=== PATIENT | male | born 1940 | race Caucasian/White ===

== ENCOUNTER 2016-11-28 10:16 | Inpatient (IN) | payer MEDICARE, OTHER ==
[2016-11-28] MEDS ORDERED: ALBUTEROL SULFATE 0.083% NEB 2.5 MG/3 ML AMPUL NEB ONE (10:32)
--- NOTE | 2016-11-28 10:34 | ER Document Report ---
ED Medical Screen (RME) - General Chief Complaint: Breathing Difficulty Stated Complaint: COUGH, SHORTNESS OF BREATH Time seen by provider: 10:34 Mode of Arrival: Wheelchair Information source: Patient Notes: 76-year-old male with cough and congestion through the holidays. He saw his primary care provider who put him on Tessalon Perles he is getting sicker. They 're wondering if he has pneumonia. 91% at triage. TRAVEL OUTSIDE OF THE [place] IN LAST 30 DAYS: No - Related Data Allergies/Adverse Reactions: lisinopril Adverse Reaction (Verified 11/28/16 10:34) cough Past Medical History - Social History Chew tobacco use (# tins/day): No
--- NOTE | 2016-11-28 10:43 | ER Document Report ---
ED Respiratory Problem - General Mode of Arrival: Wheelchair Information source: Patient TRAVEL OUTSIDE OF THE [place] IN LAST 30 DAYS: No - HPI Patient complains to provider of: Cough, Short of breath Onset: Other - see narrative Duration: Worse/persistent Quality of pain: No pain Short of Breath: Moderate Cough: Productive Sputum amount: Moderate Sputum color: Brown Associated symptoms: None Recently seen / treated by doctor: Yes <TERENCE ODELL - Last Filed: 11/28/16 11:37> <AMARA RAE - Last Filed: 11/28/16 12:34> - General Chief Complaint: Breathing Difficulty Stated Complaint: COUGH, SHORTNESS OF BREATH Notes: Patient is a 76-year-old male that presents to the emergency department today with complaints of a "cold" for a few weeks. Patient states he has had a productive cough over the last 1.5 weeks and his sputum is "the color of mud". Patient is in mild respiratory distress. Patient states he was recently changed from lisinopril to losartan because of a dry cough at the beginning of this "cold", a few weeks ago. (TERENCE ODELL) - Related Data Allergies/Adverse Reactions: lisinopril Adverse Reaction (Verified 11/28/16 10:34) cough Past Medical History - General Information source: Patient - Social History Smoking Status: Never Smoker Cigarette use (# per day): No Chew tobacco use (# tins/day): No Frequency of alcohol use: None Drug Abuse: None Lives with: Family Family History: Reviewed & Not Pertinent Patient has suicidal ideation: No Patient has homicidal ideation: No - Medical History Medical History: Negative Surgical Hx: Negative <TERENCE ODELL - Last Filed: 11/28/16 11:37> Review of Systems - Review of Systems Constitutional: No symptoms reported EENT: No symptoms reported Cardiovascular: No symptoms reported Respiratory: See HPI, Cough - productive, Short of breath Gastrointestinal: No symptoms reported Genitourinary: No symptoms reported Male Genitourinary: No symptoms reported Musculoskeletal: No symptoms reported Skin: No symptoms reported Hematologic/Lymphatic: No symptoms reported Neurological/Psychological: No symptoms reported -: Yes All other systems reviewed and negative <TERENCE ODELL - Last Filed: 11/28/16 11:37> Physical Exam - Vital signs Interpretation: Tachycardic, Hypoxic, Tachypneic - General General appearance: Alert In distress: Mild - respiratory - HEENT Head: Normocephalic, Atraumatic Eyes: Normal Conjunctiva: Normal Extraocular movements intact: Yes - Respiratory Respiratory status: Respiratory distress - mild, Tachypnea Breath sounds: Productive cough, Rhonchi, Wheezing - Cardiovascular Rhythm: Tachycardia Heart sounds: Normal auscultation Murmur: No - Abdominal Inspection: Normal Distension: No distension Tenderness: Nontender - Back Back: Normal, Nontender - Extremities General upper extremity: Normal inspection, Nontender. No: Edema General lower extremity: Normal inspection, Nontender. No: Edema - Neurological Neuro grossly intact: Yes Cognition: Normal Orientation: AAOx4 Speech: Normal - Psychological Associated symptoms: Normal affect, Normal mood - Skin Skin Temperature: Warm - quite warm to touch Skin Moisture: Dry Skin Color: Normal <TERENCE ODELL - Last Filed: 11/28/16 11:37> Course - Laboratory Result Diagrams: 11/28/16 11:05 11/28/16 11:05 <TERENCE ODELL - Last Filed: 11/28/16 11:37> - Laboratory Result Diagrams: 11/28/16 11:05 11/28/16 11:05 - Diagnostic Test Radiology reviewed: Image reviewed, Reports reviewed - Right-sided pneumonia - EKG Interpretation by Ne EKG shows normal: Sinus rhythm, [place], QRS Complexes, ST-T Waves. abnormal: Intervals - Borderline prolonged QT interval Rate: Tachycardia - 105 Rhythm: PVC's When compared to previous EKG there are: Previous EKG unavailable - Consults Dr. Rasmussen Time consulted: 12:25 Consulted provider: will come to ER <AMARA RAE - Last Filed: 11/28/16 12:34> - Re-evaluation Re-evalutation: 11/28/16 12:32 Patient's blood pressure 1 235 systolic after 1-1/2 L of normal saline. The oxygen saturation went to 97% on BiPAP at 60% FiO2. A total of 2 L normal saline would be bolused, then normal saline drip as the patient has very high BUN, and elevated blood sugar. (AMARA RAE) - Laboratory Laboratory results interpreted by il: 11/28/16 11/28/16 11/28/16 11:05 11:05 11:05 WBC 23.4 H Seg Neuts % (Manual) 86 H Lymphocytes % (Manual) 1 L Metamyelocytes % 2 H Abs Neuts (Manual) 21.8 H Abs Lymphs (Manual) 0.2 L Sodium 136.1 L Chloride 97 L BUN 67 H Creatinine 1.72 H Est GFR ( Amer) 47 L Est GFR (Non-Af Amer) 39 L Glucose 357 H Lactic Acid 3.1 H Calcium 7.8 L Total Bilirubin 2.1 H AST 683 H ALT 473 H Creatine Kinase 211 H NT-Pro-B Natriuret Pep Total Protein 5.7 L Albumin 2.7 L 11/28/16 11:05 WBC Seg Neuts % (Manual) Lymphocytes % (Manual) Metamyelocytes % Abs Neuts (Manual) Abs Lymphs (Manual) Sodium Chloride BUN Creatinine Est GFR ( Amer) Est GFR (Non-Af Amer) Glucose Lactic Acid Calcium Total Bilirubin AST ALT Creatine Kinase NT-Pro-B Natriuret Pep 959 H Total Protein Albumin (AMARA RAE) Critical Care Note - Critical Care Note Total time excluding time spent on procedures (mins): 35 <AMARA RAE - Last Filed: 11/28/16 12:34> Discharge <TERENCE ODELL - Last Filed: 11/28/16 11:37> - Discharge Admitting Provider: Hospitalist Unit Admitted: IMCU <AMARA RAE - Last Filed: 11/28/16 12:34> - Discharge Clinical Impression: Hypoxemia, Hyperglycemia Pneumonia Qualifiers: Pneumonia type: due to unspecified organism Laterality: right Lung location: unspecified part of lung Qualified Code(s): J18.9 - Pneumonia, unspecified organism Sepsis Qualifiers: Sepsis type: sepsis due to unspecified organism Qualified Code(s): A41.9 - Sepsis, unspecified organism Hypotension Qualifiers: Hypotension type: unspecified hypotension type Qualified Code(s): I95.9 - Hypotension, unspecified Leukocytosis Qualifiers: Leukocytosis type: bandemia Qualified Code(s): D72.825 - Bandemia Condition: Fair Disposition: ADMITTED INPATIENT Scribe Attestation: 11/28/16 12:34 I personally performed the services described in the documentation, reviewed and edited the documentation which was dictated to the scribe in my presence, and it accurately records my words and actions. (AMARA RAE) Scribe Documentation - Scribe Written by Scribe:: Juan Diego Norton, 11/28/2016 1136 acting as scribe for :: Kemar <TERENCE ODELL - Last Filed: 11/28/16 11:37>
[2016-11-28] MEDS ORDERED: IPRATROPIUM/ALBUTEROL 0.5-2.5 MG/3 ML AMPUL NEB ONE (10:45)
[2016-11-28] MEDS ORDERED: NORMAL SALINE 1000 ML 1,000 ML IV ONE ×2 (10:45→11:33)
[2016-11-28 11:33] LABS: HEMATOCRIT 41.3 % (37.9-51.0); HEMOGLOBIN 13.8 g/dL (13.5-17.0); HGB HCT DIFFERENCE 0.1; MEAN CORPUSCULAR HEMOGLOBIN 30.1 pg (27.0-33.4); MEAN CORPUSCULAR HGB CONC 33.5 g/dL (32.0-36.0); MEAN CORPUSCULAR VOLUME 90 fl (80-97); RED CELL DISTRIBUTION WIDTH 13.6 % (11.5-14.0); WHITE BLOOD COUNT 23.4 10^3/uL (4.0-10.5)
[2016-11-28] MEDS ORDERED: CEFTRIAXONE 1 GM/D5W RTU 50 ML IV ONE (11:33)
[2016-11-28] MEDS ORDERED: ACETAMINOPHEN 325 MG TABLET PO ONE (11:35)
[2016-11-28 11:54] LABS: ALANINE AMINOTRANSFERASE 473 U/L (21-72); ALBUMIN 2.7 g/dL (3.5-5.0); ALKALINE PHOSPHATASE 117 U/L (38-126); ANION GAP 17 (5-19); ASPARTATE AMINO TRANSFERASE 683 U/L (17-59); BILIRUBIN,DIRECT 0.2 mg/dL (0.0-0.3); BILIRUBIN,TOTAL 2.1 mg/dL (0.2-1.3); BLOOD UREA NITROGEN 67 mg/dL (7-20); CALCIUM 7.8 mg/dL (8.4-10.2); CARBON DIOXIDE 22 mmol/L (22-30); CHLORIDE 97 mmol/L (98-107); CREATINE KINASE 211 U/L (55-170); CREATININE RESULT 1.72 mg/dL (0.52-1.25); GLUCOSE 357 mg/dL (75-110); SODIUM 136.1 mmol/L (137-145); TOTAL PROTEIN 5.7 g/dL (6.3-8.2)
[2016-11-28 11:58] LABS: BAND NEUTROPHILS % (MANUAL) 5 % (3-5); BASOPHILS % (MANUAL) 0 % (0-2); EOSINOPHILS % (MANUAL) 0 % (0-6); LYMPHOCYTES % (MANUAL) 1 % (13-45); TOTAL CELLS COUNTED 100
[2016-11-28 12:02] LABS: BURR CELLS SLIGHT; POIKILOCYTOSIS SLIGHT; POLYCHROMASIA SLIGHT; TEAR DROP CELLS SLIGHT; TOXIC GRANULATION 1+
[2016-11-28 12:05] LABS: CREATINE KINASE MB 2.97 ng/mL (<4.55)
[2016-11-28 12:08] LABS: TROPONIN I 0.041 ng/mL
[2016-11-28] MEDS ORDERED: INSULIN REG, HUMAN 100 UNIT/ML 3 ML VIAL (PYX) IV ONE (12:33)
[2016-11-28] MEDS ORDERED: GLUCAGON,HUMAN RECOMB 1 MG INJ IM PRN (14:26)
[2016-11-28] MEDS ORDERED: DEXTROSE 50%-WATER 25 GM/50 ML DISP.SYRIN IV PRN ×2 (14:26)
[2016-11-28] MEDS ORDERED: DEXTROSE 40% GEL 15 GM TUBE PO PRN ×2 (14:26)
[2016-11-28] MEDS ORDERED: ACETAMINOPHEN 325 MG TABLET PO PRN (14:32)
[2016-11-28] MEDS ORDERED: LEVOFLOXACIN 750 MG/D5W RTU 750 MG/150 ML RTUPB IV ONE (15:30)
[2016-11-28] MEDS ORDERED: ENOXAPARIN SODIUM INJ 40 MG/0.4 ML DISP.SYRIN SUBCUT ONE (16:00)
[2016-11-28] MEDS: NORMAL SALINE 1000 ML 1,000 ML IV PRN (16:08)
[2016-11-28 16:44] LABS: ARTERIAL BLOOD BASE EXCESS -3.2 mmol/L; ARTERIAL BLOOD O2 SATURATION 90.3 % (94-98)
--- NOTE | 2016-11-28 16:49 | PDOC H&P ---
History of Present Illness Admission Date/PCP: 11/28/16 14:27 MONICO MURRY MD Patient complains of: Shortness of breath History of Present Illness: FAVIAN PALACIOS is a 76 year old male with hypertension, hypercholesterolemia presents to the hospital with shortness of breath 2 weeks duration. Patient apparently started to develop some cough with yellowish phlegm and some sinus drainage. No sore throat but with mild chest congestion. A lot of family members has been sick with respiratory tract infection. Patient was seen by his physician and he was given Tessalon Perles outboard enormity of symptoms. For about a week patient having intermittent chills and sweating. Patient started to decrease oral intake with associated generalized weakness and malaise and fatigue. Shortness of breath got worse and therefore the patient went to the emergency room. Chest x-ray revealed infiltrate in the right. O2 saturation on 4 L goes down in the 88 and the patient was placed on BiPAP. Blood pressure reportedly no but normalized with 2 L of IV fluid. The patient was then referred for admission. Past Medical History Cardiac Medical History: Reports: Hyperlipidema, Hypertension Malignancy Medical History: Reports: Skin Cancer Musculoskeltal Medical History: Reports: Arthritis Past Surgical History Past Surgical History: Reports: Cardiac Catheterization, Orthopedic Surgery Social History Lives with: Family Smoking Status: Never Smoker Frequency of Alcohol Use: Rare Hx Recreational Drug Use: No Drugs: None Hx Prescription Drug Abuse: No - Advance Directive Resuscitation Status: Full Code Family History Family History: Malignancy, Other - ALS Parental Family History Reviewed: Yes Children Family History Reviewed: Yes Sibling(s) Family History Reviewed.: Yes Medication/Allergy Home Medications: Metoprolol Tartrate [Lopressor 50 mg Tablet] 50 mg PO DAILY 11/28/16 Metoprolol Tartrate [Lopressor 50 mg Tablet] 75 mg PO QHS 11/28/16 Simvastatin [Zocor 40 mg Tablet] 40 mg PO QHS 11/28/16 Valsartan [Diovan 160 mg Tablet] 160 mg PO QHS 11/28/16 Allergies/Adverse Reactions: lisinopril Adverse Reaction (Verified 11/28/16 10:34) cough Review of Systems Constitutional: PRESENT: chills, fever(s), weakness - Generalized, other - Positive sweating. ABSENT: headache(s), weight gain, weight loss Eyes: ABSENT: visual disturbances Ears: ABSENT: hearing changes Nose, Mouth, and Throat: ABSENT: mouth pain, sore throat Cardiovascular: PRESENT: chest pain - Pleuritic, dyspnea on exertion. ABSENT: edema, orthropnea, palpitations Respiratory: PRESENT: cough, dyspnea, sputum - Yellowish. ABSENT: hemoptysis Gastrointestinal: PRESENT: diarrhea - Watery for the past 2 days. ABSENT: abdominal pain, constipation, hematemesis, hematochezia, melena, nausea, vomiting Genitourinary: ABSENT: difficulty urinating, dysuria, hematuria Musculoskeletal: PRESENT: muscle weakness - Generalized. ABSENT: joint swelling Integumentary: ABSENT: pruritus, rash, wounds Neurological: ABSENT: abnormal gait, abnormal speech, confusion, dizziness, focal weakness, syncope Psychiatric: ABSENT: anxiety, depression, homidical ideation, suicidal ideation Endocrine: ABSENT: cold intolerance, heat intolerance, polydipsia, polyuria Hematologic/Lymphatic: ABSENT: easy bleeding, easy bruising Physical Exam Vital Signs: Temp Pulse Resp BP Pulse Ox 98.6 F 86 17 96/55 L 97 11/28/16 14:10 11/28/16 15:07 11/28/16 14:15 11/28/16 14:15 11/28/16 14:15 General appearance: PRESENT: no acute distress, cooperative, other - BiPAP Head exam: PRESENT: atraumatic, normocephalic Eye exam: PRESENT: conjunctiva pink, EOMI, PERRLA Ear exam: PRESENT: normal external ear exam. ABSENT: drainage Mouth exam: PRESENT: dry mucosa, neck supple Throat exam: ABSENT: post pharyngeal erythema, tonsillar erythema, tonsillar exudate Neck exam: ABSENT: carotid bruit, JVD, lymphadenopathy, thyromegaly Respiratory exam: PRESENT: clear to auscultation teresa, rales - Posteriorly on the right, other - Harsh breath sounds in the right. ABSENT: rhonchi, wheezes Cardiovascular exam: PRESENT: RRR, +S1, +S2, tachycardia. ABSENT: diastolic murmur, rubs Pulses: PRESENT: normal dorsalis pedis pul Vascular exam: PRESENT: normal capillary refill GI/Abdominal exam: PRESENT: normal bowel sounds, soft. ABSENT: distended, guarding, mass, organolmegaly, rebound, tenderness Rectal exam: PRESENT: deferred Extremities exam: PRESENT: full ROM. ABSENT: calf tenderness, clubbing, pedal edema Neurological exam: PRESENT: alert, awake, oriented to person, oriented to place , oriented to time, oriented to situation Psychiatric exam: PRESENT: appropriate affect, normal mood. ABSENT: homicidal ideation, suicidal ideation Skin exam: PRESENT: dry, intact, warm. ABSENT: cyanosis, rash Results Laboratory Results: 11/28/16 15:50 Lactic Acid 1.8 Impressions: Chest X-Ray 11/28/16 11:14 IMPRESSION: Pneumonia on the right. Assessment & Plan - Diagnosis (1) Respiratory failure Qualifiers: Chronicity: acute Respiratory failure complication: hypoxia Qualified Code(s): J96.01 - Acute respiratory failure with hypoxia Is this a current diagnosis for this admission?: Yes (2) Hypotension Qualifiers: Hypotension type: unspecified hypotension type Qualified Code(s): I95.9 - Hypotension, unspecified Is this a current diagnosis for this admission?: Yes (3) Pneumonia Qualifiers: Pneumonia type: due to unspecified organism Laterality: right Lung location: unspecified part of lung Qualified Code(s): J18.9 - Pneumonia, unspecified organism Is this a current diagnosis for this admission?: Yes (4) Sepsis Qualifiers: Sepsis type: sepsis due to unspecified organism Qualified Code(s): A41.9 - Sepsis, unspecified organism Is this a current diagnosis for this admission?: Yes (5) Acute renal failure Qualifiers: Acute renal failure type: unspecified Qualified Code(s): N17.9 - Acute kidney failure, unspecified Is this a current diagnosis for this admission?: Yes (6) Abnormal liver function test Is this a current diagnosis for this admission?: Yes (7) Diabetes mellitus with hyperglycemia Qualifiers: Diabetes mellitus type: type 2 Diabetes mellitus rat exterminator insulin use : without jail use Qualified Code(s): E11.65 - Type 2 diabetes mellitus with hyperglycemia Is this a current diagnosis for this admission?: Yes (8) Hypertension Qualifiers: Hypertension type: essential hypertension Qualified Code(s): I10 - Essential (primary) hypertension Is this a current diagnosis for this admission?: Yes (9) Hyperlipidemia Qualifiers: Hyperlipidemia type: unspecified Qualified Code(s): E78.5 - Hyperlipidemia, unspecified Is this a current diagnosis for this admission?: Yes - Time Time Spent: 50 to 70 Minutes - Inpatient Certification Based on my medical assessment, after consideration of the patient's comorbidities, presenting symptoms, or acuity I expect that the services needed warrant INPATIENT care.: Yes I certify that my determination is in accordance with my understanding of Medicare's requirements for reasonable and necessary INPATIENT services [42 CFR 412.3e].: Yes Medical Necessity: Significant Comorbidiites Make Outpatient Treatment Too Risky , Need Close Monitoring Due to Risk of Patient Decompensation, Need For IV Fluids, Risk of Complication if Not Cared For in Hospital, Risk of Diagnosis Which Will Require Inpatient Eval/Care/Monitoring Post Hospital Care: D/C Ab Initio Etl Developer Documentation - Plan Summary Plan Summary: The patient will be admitted to [facility]. We will culture the sputum and blood. Continue BiPAP and begin antibiotics with Levaquin and cefepime. As needed nebulizers, antipyretics and analgesics will be given. DVT prophylaxis with Lovenox. The patient will be placed on sliding scale insulin. We will obtain hemoglobin A1c and lipid panel. We will hydrate the patient and monitor creatinine. Elevated liver function tests likely medication induced, we will obtain a right upper quadrant ultrasound.
--- NOTE | 2016-11-28 17:00 | EKG REPORT ---
SEVERITY:- ABNORMAL ECG - SINUS TACHYCARDIA MULTIPLE VENTRICULAR PREMATURE COMPLEXES BORDERLINE PROLONGED QT INTERVAL : Confirmed by: Hien Vance MD 28-Nov-2016 16:58:56
[2016-11-28] MEDS: INSULIN REG, HUMAN 100 UNIT/ML 3 ML VIAL (PYX) SUBCUT PRN ×2 (18:16→22:12)
[2016-11-28] MEDS ORDERED: CEFEPIME 2 GM/D5W RTU 50 ML IV SCH (22:00)
[2016-11-28] MEDS: GUAIFENESIN 600 MG TABLET.SA PO SCH (22:16)
[2016-11-28] MEDS: CEFEPIME HCL 2 GM in DEXTROSE 5%-WATER 50 ML IV SCH (22:18)
[2016-11-29] MEDS: NORMAL SALINE 1000 ML 1,000 ML IV PRN ×2 (02:33→15:10)
[2016-11-29] MEDS: LANSOPRAZOLE 30 MG TAB.RAP.DR PO SCH (05:30)
[2016-11-29 07:45] LABS: HEMATOCRIT 36.9 % (37.9-51.0); HEMOGLOBIN 12.3 g/dL (13.5-17.0); MEAN CORPUSCULAR HEMOGLOBIN 30.2 pg (27.0-33.4); MEAN CORPUSCULAR HGB CONC 33.5 g/dL (32.0-36.0); MEAN CORPUSCULAR VOLUME 90 fl (80-97); RED BLOOD COUNT 4.09 10^6/uL (4.35-5.55); WHITE BLOOD COUNT 25.3 10^3/uL (4.0-10.5)
[2016-11-29 07:48] LABS: ALANINE AMINOTRANSFERASE 366 U/L (21-72); ALBUMIN 2.1 g/dL (3.5-5.0); ALKALINE PHOSPHATASE 103 U/L (38-126); ANION GAP 13 (5-19); ASPARTATE AMINO TRANSFERASE 414 U/L (17-59); BILIRUBIN,DIRECT 0.1 mg/dL (0.0-0.3); BILIRUBIN,TOTAL 1.9 mg/dL (0.2-1.3); BLOOD UREA NITROGEN 58 mg/dL (7-20); CALCIUM 7.1 mg/dL (8.4-10.2); CARBON DIOXIDE 20 mmol/L (22-30); CHLORIDE 106 mmol/L (98-107); CREATININE RESULT 1.36 mg/dL (0.52-1.25); GLUCOSE 180 mg/dL (75-110); POTASSIUM 3.7 mmol/L (3.6-5.0); SODIUM 138.9 mmol/L (137-145); TOTAL PROTEIN 4.9 g/dL (6.3-8.2)
[2016-11-29] MEDS: INSULIN REG, HUMAN 100 UNIT/ML 3 ML VIAL (PYX) SUBCUT PRN ×3 (08:22→18:11)
[2016-11-29] MEDS: ENOXAPARIN SODIUM INJ 40 MG/0.4 ML DISP.SYRIN SUBCUT SCH (08:22)
[2016-11-29 08:31] LABS: BAND NEUTROPHILS % (MANUAL) 13 % (3-5); TOTAL CELLS COUNTED 100
[2016-11-29 08:32] LABS: BASOPHILS % (MANUAL) 0 % (0-2); EOSINOPHILS % (MANUAL) 0 % (0-6); LYMPHOCYTES % (MANUAL) 5 % (13-45); RBC MORPHOLOGY COMMENT NORMO-CYTIC/CHROMIC; TOXIC GRANULATION 1+; TOXIC VACUOLATION PRESENT
--- NOTE | 2016-11-29 09:52 | PDOC PROGRESS REPORT ---
Subjective Progress Note for:: 11/29/16 Subjective:: Feels slightly better today than yesterday. Able to tolerate off the BiPAP. No diarrhea. No nausea or vomiting. Creatinine improving. Liver function improving. WBC however slightly increased today. No abdominal pain nausea or vomiting. Blood pressure is now normal. Patient started to develop some tachycardia. Physical Exam Vital Signs: Temp Pulse Resp BP Pulse Ox 99.2 F 107 H 35 H 138/61 H 93 11/29/16 07:46 11/29/16 07:46 11/29/16 08:44 11/29/16 07:46 11/29/16 08:44 Pulse Oximeter Continuous Start: 11/28/16 14: 29 Freq: RTQ4 Status: Active Document 11/29/16 08:00 [facility] (Rec: 11/29/16 08:39 [facility] [email or web address]) Pulse Oximetry Assessment Oxygen Saturation (92-100) 91 Oxygen Flow Rate (L/min) 15 Oxygen Delivery Method Non-Rebreather Equipment Usage Equipment in Use Continuous SpO2 Machine # 1 Intake & Output 11/28/16 11/29/16 11/30/16 06:59 06:59 06:59 Intake Total 550 Output Total 600 Balance -50 General appearance: PRESENT: no acute distress, cooperative Head exam: PRESENT: normocephalic Eye exam: PRESENT: EOMI, PERRLA Mouth exam: PRESENT: moist, neck supple Neck exam: ABSENT: JVD Respiratory exam: PRESENT: decreased breath sounds - Right side, rhonchi - Bilateral more on the right Cardiovascular exam: PRESENT: RRR GI/Abdominal exam: PRESENT: normal bowel sounds, soft. ABSENT: distended, tenderness Extremities exam: ABSENT: pedal edema Neurological exam: PRESENT: alert, awake, oriented to situation Skin exam: PRESENT: dry, warm. ABSENT: cyanosis Results Laboratory Results: 11/29/16 04:41 11/29/16 04:41 11/28/16 11/28/16 11/29/16 15:50 16:18 04:41 WBC 25.3 H RBC 4.09 L Hgb 12.3 L Hct 36.9 L MCV 90 MCH 30.2 MCHC 33.5 RDW 14.0 Plt Count 253 Seg Neutrophils % Not Reportable Lymphocytes % Not Reportable Monocytes % Not Reportable Eosinophils % Not Reportable Basophils % Not Reportable Absolute Neutrophils Not Reportable Absolute Lymphocytes Not Reportable Absolute Monocytes Not Reportable Absolute Eosinophils Not Reportable Absolute Basophils Not Reportable Carbonic Acid 0.95 L HCO3/H2CO3 Ratio 21:1 ABG pH 7.42 ABG pCO2 31.7 L ABG pO2 56.2 L ABG HCO3 20.2 ABG O2 Saturation 90.3 L ABG Base Excess -3.2 FiO2 70% Sodium Potassium Chloride Carbon Dioxide Anion Gap BUN Creatinine Est GFR ( Amer) Est GFR (Non-Af Amer) Glucose Lactic Acid 1.8 Calcium Total Bilirubin AST ALT Alkaline Phosphatase Total Protein Albumin 11/29/16 04:41 WBC RBC Hgb Hct MCV MCH MCHC RDW Plt Count Seg Neutrophils % Lymphocytes % Monocytes % Eosinophils % Basophils % Absolute Neutrophils Absolute Lymphocytes Absolute Monocytes Absolute Eosinophils Absolute Basophils Carbonic Acid HCO3/H2CO3 Ratio ABG pH ABG pCO2 ABG pO2 ABG HCO3 ABG O2 Saturation ABG Base Excess FiO2 Sodium 138.9 Potassium 3.7 Chloride 106 Carbon Dioxide 20 L Anion Gap 13 BUN 58 H Creatinine 1.36 H Est GFR ( Amer) > 60 Est GFR (Non-Af Amer) 51 L Glucose 180 H Lactic Acid Calcium 7.1 L Total Bilirubin 1.9 H AST 414 H ALT 366 H Alkaline Phosphatase 103 Total Protein 4.9 L Albumin 2.1 L Impressions: Chest X-Ray 11/28/16 11:14 IMPRESSION: Pneumonia on the right. Abdomen Ultrasound 11/29/16 00:00 IMPRESSION: No acute findings. Gallbladder wall is slightly thickened as described. There is fatty infiltration of liver. Assessment & Plan - Diagnosis (1) Respiratory failure Qualifiers: Chronicity: acute Respiratory failure complication: hypoxia Qualified Code(s): J96.01 - Acute respiratory failure with hypoxia Is this a current diagnosis for this admission?: Yes (2) Hypotension Qualifiers: Hypotension type: unspecified hypotension type Qualified Code(s): I95.9 - Hypotension, unspecified Is this a current diagnosis for this admission?: Yes (3) Pneumonia Qualifiers: Pneumonia type: due to unspecified organism Laterality: right Lung location: unspecified part of lung Qualified Code(s): J18.9 - Pneumonia, unspecified organism Is this a current diagnosis for this admission?: Yes (4) Sepsis Qualifiers: Sepsis type: sepsis due to unspecified organism Qualified Code(s): A41.9 - Sepsis, unspecified organism Is this a current diagnosis for this admission?: Yes (5) Acute renal failure Qualifiers: Acute renal failure type: unspecified Qualified Code(s): N17.9 - Acute kidney failure, unspecified Is this a current diagnosis for this admission?: Yes (6) Abnormal liver function test Is this a current diagnosis for this admission?: Yes (7) Diabetes mellitus with hyperglycemia Qualifiers: Diabetes mellitus type: type 2 Diabetes mellitus ocean transportation intermediary insulin use : without fdc use Qualified Code(s): E11.65 - Type 2 diabetes mellitus with hyperglycemia Is this a current diagnosis for this admission?: Yes (8) Hypertension Qualifiers: Hypertension type: essential hypertension Qualified Code(s): I10 - Essential (primary) hypertension Is this a current diagnosis for this admission?: Yes (9) Hyperlipidemia Qualifiers: Hyperlipidemia type: unspecified Qualified Code(s): E78.5 - Hyperlipidemia, unspecified Is this a current diagnosis for this admission?: Yes - Time Time Spent with patient: 25-34 minutes - Plan Summary Plan Summary: Continue antibiotics and bronchodilators. Continue supplemental oxygen. Monitor WBC. Monitor liver function tests. We will resumed the patient's beta alycia. Continue to hold cholesterol medication due to elevated liver function.
[2016-11-29] MEDS ORDERED: METOPROLOL TARTRATE 50 MG TABLET PO SCH ×2 (10:00→22:00)
[2016-11-29] MEDS: CEFEPIME HCL 2 GM in DEXTROSE 5%-WATER 50 ML IV SCH ×2 (10:01→22:40)
[2016-11-29] MEDS: METOPROLOL TARTRATE 50 MG TABLET PO SCH ×2 (10:01→22:40)
[2016-11-29] MEDS: GUAIFENESIN 600 MG TABLET.SA PO SCH ×2 (10:01→22:46)
[2016-11-29] MEDS: LEVOFLOXACIN 750 MG/D5W RTU 150 ML IV SCH (10:50)
[2016-11-29 13:38] LABS: PATH REVIEW PATHOLOGIST REVIEWED
--- NOTE | 2016-11-29 16:13 | Physician Advisory Note ---
Physician Advisor ProgressNote .: Pursuant to the plan for [facility], I have reviewed the medical record for this patient. Physician Advisor Statement: Possible documentation opportunities if attending agrees: 1. "PNA of all Rt lobes of lung, due to H.flu" [or specify which other organism you suspect] 2. "sepsis due to PNA, present on admission, despite neg BCs" - Pt does meet criteria for dx of sepsis (Sepsis-2 & Sepsis-3/SOFA & qSOFA), with HR 102, RR45, BP 94/54, WBC 23.4, lactate level 3.1, hypoxemia, TBili 2.1, Cr 1.72 3. "mild hyponatremia, likely due to intravascular volume depletion" 4. "Acute Kidney Injury likely due to " [ATN, Acute cortical necrosis, medullary necrosis, ...] 5. Please document "Pt had respiratory distress & increased work of breathing evident in the ED" (*see discussion below - need both parts of Ac Resp Failure dx documented by attending, since coders have to disregard what is documented only by ED) - ED dr stated "in mild resp distress", ED triage stated "increased work of breathing", ED documented tachypnea, tachycardia. Acute Respiratory Failure = (A) Documented difficulty breathing + (B) Hypoxemia* - Hypoxemia alone is not sufficient for the dx, although certainly indicates one should consider it. A. Difficulty breathing: Pt should show signs of resp distress (even if mild), tachypnea, use of accessory muscles/retractions, tripoding, inability to speak full sentences,central cyanosis and can also be supported by decreased level of consciousness. Stating pt has SOB/coughing/wheezing (sx), when PE states NAD or gives no mention of any of above signs, is not typically sufficient to support this part of the dx. B. Hypoxemia: PO2 <60mmHg or O2 sat <88-91% on RA or P/F ratio <300. (*May substitute hypercarbia [ pCO2>50mmHg] with pH <7.35; or, if pt has chronic resp failure, then a 10-15mmHg drop in baseline PO2 at same level of O2 , or a 10mmHg increase in pCO2 from baseline.) Ref: [email or web address], same of 10/2009, 04/2010, 05/2011, 2012, 09/2013. Thanks for your help with documentation accuracy/specificity improvement! Daja Martin MD [facility] Physician Advisor, Fellow of [facility]
[2016-11-29] MEDS: LEVALBUTEROL HCL NEB 1.25 MG/3 ML AMPUL NEB PRN (18:38)
[2016-11-29] MEDS ORDERED: SIMVASTATIN 40 MG TABLET PO SCH (22:00)
[2016-11-29] MEDS ORDERED: VALSARTAN 160 MG TABLET PO SCH (22:00)
[2016-11-30] MEDS: NORMAL SALINE 1000 ML 1,000 ML IV PRN (01:05)
[2016-11-30 05:15] LABS: HEMATOCRIT 36.6 % (37.9-51.0); HEMOGLOBIN 12.4 g/dL (13.5-17.0); HGB HCT DIFFERENCE 0.6; MEAN CORPUSCULAR HEMOGLOBIN 30.1 pg (27.0-33.4); MEAN CORPUSCULAR VOLUME 89 fl (80-97); RED BLOOD COUNT 4.12 10^6/uL (4.35-5.55); RED CELL DISTRIBUTION WIDTH 14.2 % (11.5-14.0); WHITE BLOOD COUNT 28.4 10^3/uL (4.0-10.5)
[2016-11-30 05:17] LABS: ALANINE AMINOTRANSFERASE 329 U/L (21-72); ALBUMIN 1.9 g/dL (3.5-5.0); ALKALINE PHOSPHATASE 131 U/L (38-126); ANION GAP 11 (5-19); ASPARTATE AMINO TRANSFERASE 490 U/L (17-59); BILIRUBIN,TOTAL 1.8 mg/dL (0.2-1.3); BLOOD UREA NITROGEN 40 mg/dL (7-20); CALCIUM 7.2 mg/dL (8.4-10.2); CARBON DIOXIDE 21 mmol/L (22-30); CHLORIDE 109 mmol/L (98-107); CREATININE RESULT 1.05 mg/dL (0.52-1.25); GLUCOSE 101 mg/dL (75-110); POTASSIUM 3.7 mmol/L (3.6-5.0); SODIUM 140.6 mmol/L (137-145); TOTAL PROTEIN 4.9 g/dL (6.3-8.2)
[2016-11-30] MEDS: LEVALBUTEROL HCL NEB 1.25 MG/3 ML AMPUL NEB PRN ×2 (05:49→20:27)
[2016-11-30 06:13] LABS: ARTERIAL BLOOD BASE EXCESS -4.1 mmol/L; ARTERIAL BLOOD O2 SATURATION 94.4 % (94-98)
[2016-11-30] MEDS: LANSOPRAZOLE 30 MG TAB.RAP.DR PO SCH (06:25)
[2016-11-30] MEDS: LORAZEPAM INJ 2 MG/1 ML VIAL IV PRN ×2 (08:36→20:44)
[2016-11-30] MEDS: ENOXAPARIN SODIUM INJ 40 MG/0.4 ML DISP.SYRIN SUBCUT SCH (08:36)
[2016-11-30 08:43] LABS: CREATINE KINASE MB 3.6 ng/mL (<4.55); TROPONIN I 0.026 ng/mL
[2016-11-30] MEDS: METOPROLOL TARTRATE 50 MG TABLET PO SCH ×2 (09:36→21:51)
[2016-11-30] MEDS: CEFEPIME HCL 2 GM in DEXTROSE 5%-WATER 50 ML IV SCH ×2 (09:37→21:55)
[2016-11-30] MEDS: LEVOFLOXACIN 750 MG/D5W RTU 150 ML IV SCH (09:37)
[2016-11-30] MEDS: GUAIFENESIN 600 MG TABLET.SA PO SCH ×2 (09:37→21:50)
--- NOTE | 2016-11-30 09:43 | EKG REPORT ---
SEVERITY:- ABNORMAL ECG - SINUS RHYTHM PROLONGED QT INTERVAL : Confirmed by: Hien Vance MD 30-Nov-2016 09:43:10
--- NOTE | 2016-11-30 09:47 | PDOC PROGRESS REPORT ---
Subjective Progress Note for:: 11/30/16 Subjective:: Patient reportedly oxygen saturation drop and has to be transferred to the intensive care unit. No reported temperature spikes nausea or vomiting. Patient somehow not comfortable with the BiPAP as reported by the ICU staff. Oxygen saturation while in ICU is in the 90s. Patient reports no respiratory distress. No diarrhea. No nausea or vomiting. WBC continues to increase. Physical Exam Vital Signs: Temp Pulse Resp BP Pulse Ox 99.5 F 99 33 H 132/67 H 100 11/30/16 07:10 11/30/16 08:00 11/30/16 08:10 11/30/16 08:10 11/30/16 08:10 Pulse Oximeter Continuous Start: 11/28/16 14: 29 Freq: RTQ4 Status: Active Document 11/30/16 04:00 [facility] (Rec: 11/30/16 06:14 [facility] [email or web address]) Pulse Oximetry Assessment Oxygen Saturation (92-100) 93 Oxygen Delivery Method Bi-pap Fraction of Inspired Oxygen (FIO2) 100 Equipment Usage Equipment in Use Continuous SpO2 Machine # 1 Intake & Output 11/29/16 11/30/16 12/01/16 06:59 06:59 06:59 Intake Total 550 1957 Output Total 600 1000 Balance -50 957 Weight 95.8 kg General appearance: PRESENT: no acute distress, other - On BiPAP Eye exam: PRESENT: EOMI, PERRLA Mouth exam: PRESENT: moist, neck supple Neck exam: ABSENT: JVD Respiratory exam: PRESENT: decreased breath sounds - Right-sided, rhonchi - Right-sided Cardiovascular exam: PRESENT: RRR. ABSENT: gallop GI/Abdominal exam: PRESENT: soft. ABSENT: distended, tenderness Extremities exam: ABSENT: pedal edema Neurological exam: PRESENT: alert, awake, oriented to situation Skin exam: PRESENT: dry, warm. ABSENT: cyanosis Results Laboratory Results: 11/30/16 04:21 11/30/16 04:21 11/29/16 11/30/16 11/30/16 04:41 04:21 04:21 WBC 25.3 H 28.4 H RBC 4.09 L 4.12 L Hgb 12.3 L 12.4 L Hct 36.9 L 36.6 L MCV 90 89 MCH 30.2 30.1 MCHC 33.5 34.0 RDW 14.0 14.2 H Plt Count 253 261 Carbonic Acid HCO3/H2CO3 Ratio ABG pH ABG pCO2 ABG pO2 ABG HCO3 ABG O2 Saturation ABG Base Excess FiO2 Sodium 140.6 Potassium 3.7 Chloride 109 H Carbon Dioxide 21 L Anion Gap 11 BUN 40 H Creatinine 1.05 Est GFR ( Amer) > 60 Est GFR (Non-Af Amer) > 60 Glucose 101 Calcium 7.2 L Total Bilirubin 1.8 H AST 490 H ALT 329 H Alkaline Phosphatase 131 H Total Protein 4.9 L Albumin 1.9 L 11/30/16 06:07 WBC RBC Hgb Hct MCV MCH MCHC RDW Plt Count Carbonic Acid 0.94 L HCO3/H2CO3 Ratio 20:1 ABG pH 7.41 ABG pCO2 31.3 L ABG pO2 69.5 L ABG HCO3 19.4 L ABG O2 Saturation 94.4 ABG Base Excess -4.1 FiO2 100% Sodium Potassium Chloride Carbon Dioxide Anion Gap BUN Creatinine Est GFR ( Amer) Est GFR (Non-Af Amer) Glucose Calcium Total Bilirubin AST ALT Alkaline Phosphatase Total Protein Albumin 11/30/16 11/30/16 04:21 08:05 Creatine Kinase 120 CK-MB (CK-2) 3.60 Troponin I 0.026 Impressions: Abdomen Ultrasound 11/29/16 00:00 IMPRESSION: No acute findings. Gallbladder wall is slightly thickened as described. There is fatty infiltration of liver. Chest X-Ray 11/30/16 06:16 IMPRESSION: Improving pneumonia. Assessment & Plan - Diagnosis (1) Respiratory failure Qualifiers: Chronicity: acute Respiratory failure complication: hypoxia Qualified Code(s): J96.01 - Acute respiratory failure with hypoxia Is this a current diagnosis for this admission?: Yes (2) Hypotension Qualifiers: Hypotension type: unspecified hypotension type Qualified Code(s): I95.9 - Hypotension, unspecified Is this a current diagnosis for this admission?: Yes (3) Pneumonia Qualifiers: Pneumonia type: due to unspecified organism Laterality: right Lung location: unspecified part of lung Qualified Code(s): J18.9 - Pneumonia, unspecified organism Is this a current diagnosis for this admission?: Yes (4) Sepsis Qualifiers: Sepsis type: sepsis due to unspecified organism Qualified Code(s): A41.9 - Sepsis, unspecified organism Is this a current diagnosis for this admission?: Yes (5) Acute renal failure Qualifiers: Acute renal failure type: unspecified Qualified Code(s): N17.9 - Acute kidney failure, unspecified Is this a current diagnosis for this admission?: Yes (6) Abnormal liver function test Is this a current diagnosis for this admission?: Yes (7) Diabetes mellitus with hyperglycemia Qualifiers: Diabetes mellitus type: type 2 Diabetes mellitus terminal computer operator insulin use : without terminal computer operator use Qualified Code(s): E11.65 - Type 2 diabetes mellitus with hyperglycemia Is this a current diagnosis for this admission?: Yes (8) Hypertension Qualifiers: Hypertension type: essential hypertension Qualified Code(s): I10 - Essential (primary) hypertension Is this a current diagnosis for this admission?: Yes (9) Hyperlipidemia Qualifiers: Hyperlipidemia type: unspecified Qualified Code(s): E78.5 - Hyperlipidemia, unspecified Is this a current diagnosis for this admission?: Yes - Time Time Spent with patient: 25-34 minutes - Plan Summary Plan Summary: We will add Flagyl to the treatment regimen. LFTs seems to be elevated we will obtain a HIDA scan. We will likewise check CT scan of the chest for any loculated fluid. Continue supportive care. Continue ICU care. Ativan as needed for anxiety.
[2016-11-30] MEDS ORDERED: GUAIFENESIN/CODEINE PHOS 100-10 MG/ 5 ML UDC PO PRN (13:41)
[2016-11-30] MEDS: METRONIDAZOLE 500 MG/NS RTU 100 ML IV SCH ×2 (14:11→17:44)
--- NOTE | 2016-11-30 20:40 | Progress Note ---
Provider Note Provider Note: 11/30/2016: Contacted by patient's floor nurse toward the end of the evening shift concerning patient's sudden increase in oxygen requirement, along with tachypnea and respiratory distress. Rapid response was called. Went to the patient's bedside shortly thereafter. FiO2 had to be increased from 70% to 100% in a fairly rapid fashion to maintain oxygen saturation in the low 90 percentile range. Respiratory rate in the mid to upper 30s. Patient was awake and alert. Denied pain. Stated he was breathing more comfortably with the increased oxygen. Skin warm and dry. Lungs clear to auscultation. Patient awake alert pleasant and cooperative. Mildly anxious, although no phi agitation. Floor nurse present, along with ICU nurse. Female and male friends/family members present; patient approves. Due to patient's worsening respiratory status, combined with his admitting diagnosis and advanced age, decision was made to transfer the patient to the intensive care unit. Blood gas results were noted, and patient was changed from BiPAP to CPAP. Intubation was not felt necessary at that point. 30 minutes critical care time spent in evaluation and management of patient, including chart review, direct patient exam and evaluation, multiple discussions with patient, family members, nursing staff, and entering of multiple orders into the electronic health record. Patient was discussed at checkout rounds with his usual daytime hospitalist.
[2016-12-01] MEDS: METRONIDAZOLE 500 MG/NS RTU 100 ML IV SCH (00:01)
[2016-12-01 00:38] LABS: ARTERIAL BLOOD O2 SATURATION 84.6 % (94-98)
[2016-12-01] MEDS ORDERED: PROPOFOL 100 ML IV ONE (01:07)
[2016-12-01] MEDS ORDERED: PHARMACY COMMUNICATION ORDER MC NR (01:15)
[2016-12-01] MEDS ORDERED: PROPOFOL INJ 200 MG/20 ML VIAL IV ONE (01:44)
[2016-12-01] MEDS: PROPOFOL 100 ML IV PRN ×3 (02:44→12:58)
[2016-12-01] MEDS ORDERED: VANCOMYCIN HCL INJ 1000 MG VIAL ONE (03:00)
[2016-12-01] MEDS ORDERED: PIPERACILLIN/TAZOBACTAM 3.375 GM VIAL IV ONE (03:00)
[2016-12-01 03:10] LABS: ARTERIAL BLOOD BASE EXCESS -3.4 mmol/L; ARTERIAL BLOOD O2 SATURATION 88.7 % (94-98)
[2016-12-01] MEDS ORDERED: PIPERACILLIN/TAZOBACTAM 3.375 GM VIAL IV PRN (03:57)
[2016-12-01] MEDS ORDERED: VANCOMYCIN HCL INJ 1000 MG VIAL IV PRN (04:00)
[2016-12-01] MEDS ORDERED: PIPERACILLIN SODIUM/TAZOBACTAM 3.375 GM in NORMAL SALINE 100 ML IV ONE (04:00)
[2016-12-01] MEDS ORDERED: POTASSI CL 20 MEQ/NS 1L 1000 ML IV PRN (04:39)
[2016-12-01] MEDS ORDERED: NORMAL SALINE 250 ML IV ONE (04:45)
[2016-12-01] MEDS: LORAZEPAM INJ 2 MG/1 ML VIAL IV PRN (04:48)
[2016-12-01] MEDS ORDERED: VANCOMYCIN HCL 1,000 MG in DEXTROSE 5%-WATER 250 ML IV ONE (05:00)
[2016-12-01 05:06] LABS: HEMATOCRIT 36.2 % (37.9-51.0); HEMOGLOBIN 11.5 g/dL (13.5-17.0); HGB HCT DIFFERENCE -1.7; MEAN CORPUSCULAR HEMOGLOBIN 28.9 pg (27.0-33.4); MEAN CORPUSCULAR HGB CONC 31.8 g/dL (32.0-36.0); MEAN CORPUSCULAR VOLUME 91 fl (80-97); RED BLOOD COUNT 3.98 10^6/uL (4.35-5.55); RED CELL DISTRIBUTION WIDTH 14.6 % (11.5-14.0); WHITE BLOOD COUNT 29.4 10^3/uL (4.0-10.5)
[2016-12-01 05:13] LABS: ALANINE AMINOTRANSFERASE 213 U/L (21-72); ALBUMIN 1.9 g/dL (3.5-5.0); ALKALINE PHOSPHATASE 125 U/L (38-126); AMYLASE 31 U/L (30-110); ANION GAP 11 (5-19); ASPARTATE AMINO TRANSFERASE 168 U/L (17-59); BILIRUBIN,TOTAL 1.6 mg/dL (0.2-1.3); BLOOD UREA NITROGEN 41 mg/dL (7-20); CALCIUM 7.1 mg/dL (8.4-10.2); CARBON DIOXIDE 20 mmol/L (22-30); CHLORIDE 111 mmol/L (98-107); CREATININE RESULT 1.12 mg/dL (0.52-1.25); GLUCOSE 200 mg/dL (75-110); LDH 684 U/L (313-618); LIPASE 87.1 U/L (23-300); MAGNESIUM 2.6 mg/dL (1.6-2.3); PHOSPHORUS 4.2 mg/dL (2.5-4.5); POTASSIUM 3.9 mmol/L (3.6-5.0); SODIUM 142.3 mmol/L (137-145); TOTAL PROTEIN 4.9 g/dL (6.3-8.2); TRIGLYCERIDES 330 mg/dL (<150)
[2016-12-01 05:20] LABS: ARTERIAL BLOOD BASE EXCESS -4.8 mmol/L; ARTERIAL BLOOD O2 SATURATION 95.7 % (94-98)
[2016-12-01] MEDS: LANSOPRAZOLE 30 MG TAB.RAP.DR PO SCH (05:52)
[2016-12-01 05:54] LABS: BASOPHILS % (MANUAL) 0 % (0-2); EOSINOPHILS % (MANUAL) 0 % (0-6); LYMPHOCYTES % (MANUAL) 9 % (13-45); TOTAL CELLS COUNTED 100
[2016-12-01 05:55] LABS: TOXIC GRANULATION 1+
[2016-12-01 05:56] LABS: ANISOCYTOSIS SLIGHT; TARGET CELLS SLIGHT
--- NOTE | 2016-12-01 06:38 | CONSULTATION REPORT E ---
Consultation Report NAME: FAVIAN PALACIOS : 1940 AGE: 76Y DATE: 11/30/2016 602 A TO: NOEL ALVAREZ M.D. FROM: ADRIENNE MARTINEZ Requesting Physician HISTORY OF PRESENT ILLNESS: Patient is a 76-year-old male, who came about 2 days ago for increased shortness of breath, fever, chills, coughing productively with purulent yellow-green sputum, admitted and treated for pneumonia, was given cefepime 2 g IV piggyback, Levaquin 750 mg daily IV and Flagyl 500 mg IV piggyback every 6 hours. Today, pulmonology was consulted because patient went to acute respiratory failure due to multiolbar pneumonia and severely sepsis with white count of 25,000 and increased bandemia over the last few days. Patient was subsequently endotracheally intubated and mechanically ventilated, requiring high FiO2 of 100% and PEEP of 10 cm H2O and borderline oxygen saturation. Patient was noted to be febrile this morning. PAST MEDICAL HISTORY: 1. Hyperlipidemia. 2. Hypertension. 3. Skin cancer. 4. Arthritis. PAST SURGICAL HISTORY: orthopedic surgery. SOCIAL HISTORY: Patient lives with family. He never smoked. Drinks alcohol occasionally. Denies illicit drug use. Denies prescription drug abuse. CODE STATUS: Patient is a FULL CODE. FAMILY HISTORY: Patient has family history of malignancy. MEDICATIONS AT HOME: Include: 1. Metoprolol. 2. Simvastatin. 3. Valsartan. ALLERGIES: LISINOPRIL. REVIEW OF SYSTEMS: CONSTITUTIONAL: No fever, chills or weakness. Generalized and profuse sweating. EYES: No jaundice or blurry vision. EARS: No hearing changes or ear discharges. NOSE/MOUTH/THROAT: No complaints of mouth pain or ulcer in throat. CARDIOVASCULAR: Has the chest pain, pleuritic dyspnea, edema, orthopnea, palpitations. RESPIRATORY: Cough with purulent sputum production, yellow-green. No hemoptysis. GASTROINTESTINAL: Has watery stool for 2 days. Has lower abdominal pain. No constipation, hematemesis, hematochezia, or melena. No nausea or vomiting. GENITOURINARY: No dysuria, hematuria, or passing renal stone. EXTREMITIES: Muscle weakness. NERVOUS SYSTEM: Abnormal gait. Abnormal speech. Confusion and dizziness. PHYSICAL EXAMINATION: GENERAL: Patient currently is sedated, febrile, not in acute respiratory distress. VITAL SIGNS: Respiratory rate of 18, blood pressure of 114/58, he is febrile, temperature of 100 degrees Fahrenheit at 12:00 a.m. and saturation is 89% to 91% on FiO2 of 100%, rate of 18, tidal volume of 590 adjusted based on ideal body weight of 73.8 kg using ARDSnet recommendation of 18 ml/ kg body weight; tidal volume of 590 mL, pressure support above PEEP of 10 cm H2O, FiO2 100% and to be titrated to get saturation 90% to 94%. Peak airway pressure was 27. EYES: No jaundice or pallor. EARS, NOSE, THROAT: No ear drainage or no nasal discharge. HEAD AND NECK: No scalp swelling or tenderness. CHEST AND LUNGS: No rales or crackles. CARDIOVASCULAR: S1 and S2 distinct. Normal rate and regular rhythm. ABDOMEN: Flabby. Positive bowel sounds. Soft, nondistended. EXTREMITIES: No joint swelling. No cellulitis. LABORATORY: CBC done today showed white count of 28.4 from 23.4, 4 days ago. Hemoglobin is 12.4, hematocrit 36.6, platelet count is 261. BUN is 13% today, 13% yesterday from 5% on admission. Chemistry showed sodium 140, potassium 3.7, chloride 109, CO2 of 21, BUN is 40, creatinine 1.05. Calcium is 7.2. Total bilirubin is 1.8. SGOT is 490, SGPT 339, alkaline phosphatase 131. Influenza A and B rapid antigen test was negative. Chest x-ray showed infiltrates involving the right upper lobe, right lower lobe, multilobar and left lower lobe, suspicious for pneumonia and possible pleural effusion, right side. ASSESSMENT: 1. Acute respiratory failure requiring invasive mechanical ventilation. 2. Pneumonia, multilobar without pleural effusion, small, right side, probably moderate on ultrasound. 3. Severe sepsis. 4. Respiratory distress. PLAN/RECOMMENDATIONS: 1. We will change IV antibiotics to Zosyn 3.375 g IV piggyback every 6 hours and patient will start. 2. We will continue Levaquin 750 mg IV piggyback once daily. 3. Discontinue IV cefepime and metronidazole. 4. Change the ventilator settings to ventilator rate of 18, come to tidal volume 590 mL from 700, pressure support of 10, PEEP of 10. Titrate FiO2 to keep the oxygen saturation from 91% to 94%. 5. Continue propofol for IV sedation. 6. Insert NG tube and keep n.p.o. for now. 7. We did blood cultures and sent for sputum culture. We will order a thoracic ultrasound bilaterally. 8. Interventional Radiology consult for possible ultrasound-guided thoracentesis if the pleural effusion is [id number]. Send pleural fluid for pH. Glucose, LDH, protein, cell count and differential, cultures and cytology. We will add serum LDH level if thoracentesis will be done. We will follow patient. DICTATING PHYSICIAN: NOEL ALVAREZ MD,ZHEN,MPH [id number] PHY#: [id number] ID: [id number] JOB#: [id number] ACCT: [id number] cc:NOEL ALVAREZ M.D. > MTDD
[2016-12-01] MEDS ORDERED: NOREPINEPHRINE BITARTRATE INJ/PF 4 MG/4 ML SDV IV ONE ×2 (08:33→08:39)
[2016-12-01] MEDS ORDERED: DEXTROSE 5%-WATER 250 ML with NOREPINEPHRINE BITARTRATE 4 MG IV PRN ×2 (08:39)
--- NOTE | 2016-12-01 08:48 | Progress Note ---
Provider Note Provider Note: 12/01/2016: Early this morning, I was contacted by patient's ICU nurse that his oxygen requirement had once again suddenly increased, along with increased work of breathing. I went to the patient's bedside shortly thereafter. Patient had been on high flow oxygen, but this was changed to CPAP 100%. His oxygen saturation did improve to 92% on CPAP, 100% FiO2, but patient remained tachypneic, with respiratory rate in the high 30s to low 40s. Overall fatigued appearance. At that point in time, I recommended patient undergo endotracheal intubation and be placed on the ventilator. Rationale for same discussed in layperson's terms with patient. He agreed, but did request that son, who was in the ICU waiting room be notified. Son came to patient's bedside a few minutes later and I discussed plans and rationale for same. Son called his mother, patient's , and discussed same by phone and asked that I also discuss same with her. This was accomplished. also agrees with plans. Endotracheal intubation was accomplished by [facility]. A number of ventilator changes were made due to patient's persistent hypoxemia. At that time, I requested that Dr. Lange, pharmacy consultant courtroom deputy or calendar clerk be contacted. This was accomplished, and Dr. Lange came to the hospital short time later and provided valuable assistance in managing this somewhat complicated patient. 40 minutes of critical care time spent in evaluation and management of patient, including direct patient evaluation, discussion with patient, son, and , along with multiple discussions with nursing staff, review of xray films and reports, and entering of multiple orders into the electronic health record.
[2016-12-01] MEDS: ENOXAPARIN SODIUM INJ 40 MG/0.4 ML DISP.SYRIN SUBCUT SCH (08:51)
[2016-12-01] MEDS ORDERED: PIPERACILLIN SODIUM/TAZOBACTAM 3.375 GM in NORMAL SALINE 100 ML IV SCH (09:00)
--- NOTE | 2016-12-01 09:13 | PDOC TRANSFER SUMMARY ---
General Admission Date/PCP: 11/28/16 14:27 MONICO MURRY MD Admission Date: 11/28/16 Transfer Date: 12/01/16 Accepting Facility: [facility] Accepting Physician: Dr. Reagan Resuscitation Status: Full Code - Transfer Diagnosis (1) Respiratory failure Current Visit: Yes (2) Hypotension Current Visit: Yes (3) Pneumonia Current Visit: Yes (4) Sepsis Current Visit: Yes (5) Acute renal failure Current Visit: Yes (6) Abnormal liver function test Current Visit: Yes (7) Diabetes mellitus with hyperglycemia Current Visit: Yes (8) Hypertension Current Visit: Yes (9) Hyperlipidemia Current Visit: Yes - Transfer Medications Home Medications: Metoprolol Tartrate [Lopressor 50 mg Tablet] 50 mg PO DAILY 11/28/16 Metoprolol Tartrate [Lopressor 50 mg Tablet] 75 mg PO QHS 11/28/16 Simvastatin [Zocor 40 mg Tablet] 40 mg PO QHS 11/28/16 Valsartan [Diovan 160 mg Tablet] 160 mg PO QHS 11/28/16 Transfer Medications: Current Medications Acetaminophen (Tylenol 325 Mg Tablet) 650 mg PO Q4HP PRN PRN Reason: fever Stop: 12/28/16 14:31 Dextrose (Dextrose Inj 50% Syringe (25 Gm/50 Ml)) 25 gm IV PRN PRN PRN Reason: Protocol Stop: 12/28/16 14:25 Dextrose (Dextrose Inj 50% Syringe (25 Gm/50 Ml)) 12.5 gm IV PRN PRN; Protocol PRN Reason: FOR BG 50-69 IN ALERT PATIENT Stop: 12/28/16 14:25 Enoxaparin Sodium (Lovenox Inj 40 Mg/0.4 Ml Disp.Syrin) [address] [facility] Stop: 12/29/16 07:59 Last Admin: 12/01/16 08:51 Dose: 40 mg Glucagon (Glucagen Inj 1 Mg Vial) 1 mg IM PRN PRN; Protocol PRN Reason: Evaluate for BG < 70 Stop: 12/28/16 14:25 Glucose (Glutose 40% Gel 15 Gm Tube) 15 gm PO PRN PRN; Protocol PRN Reason: FOR BG 50-69 IN ALERT PATIENT Stop: 12/28/16 14:25 Glucose (Glutose 40% Gel 15 Gm Tube) 30 gm PO PRN PRN; Protocol PRN Reason: FOR BG < 50 IN ALERT PATIENT Stop: 12/28/16 14:25 Guaifenesin (Mucinex Sr 600 Mg Tablet.Sa) 1,200 mg PO Q12 COUNT INCLUDES THE [facility] Stop: 12/28/16 21:59 Last Admin: 11/30/16 21:50 Dose: 1,200 mg Guaifenesin/Codeine Phosphate (Robitussin-Ac Liquid 5 Ml Udcup) 5 ml PO Q4HP PRN PRN Reason: COUGH Stop: 12/30/16 13:40 Last Admin: 11/30/16 14:11 Dose: 5 ml Levofloxacin/Dextrose (Levaquin Rtu 750 Mg/D5w 150 Ml Premix) 150 mls @ 100 mls /hr IV DAILY COUNT INCLUDES THE [facility] Stop: 12/06/16 09:59 Last Admin: 11/30/16 09:37 Dose: 150 ml Propofol (Diprivan Rtu 1000 Mg/100 Ml Inf.Bottle) 100 mls @ 0 mls/hr IV CONTINUOUS PRN; Protocol; Titrate PRN Reason: THIS MED IS NOT "PRN" Stop: 12/31/16 01:07 Last Admin: 12/01/16 04:22 Dose: 100 ml Piperacillin Sod/Tazobactam (Sod 3.375 gm/ Sodium Chloride) 100 mls @ 200 mls/ hr IV Q6A [facility] Stop: 12/08/16 08:59 Last Admin: 12/01/16 08:46 Dose: 3.375 gm Potassium Chloride/Sodium Chloride (Nacl 0.9% 1000 Ml/Kcl 20 Meq Premix Bag) 1, 000 mls @ 125 mls/hr IV CONTINUOUS PRN PRN Reason: THIS MED IS NOT "PRN" Stop: 12/31/16 04:38 Last Admin: 12/01/16 05:54 Dose: 1,000 ml Norepinephrine Bitartrate 4 mg (/ Dextrose) 250 mls @ 0 mls/hr IV CONTINUOUS PRN; Protocol; Titrate PRN Reason: THIS MED IS NOT "PRN" Stop: 12/31/16 08:38 Last Admin: 12/01/16 08:47 Dose: 4 mg Insulin Human Regular (Humulin R (Pyxis) Insulin 100 Unit/Ml 3ml) 0 - 12 unit SUBCUT ACHSP PRN PRN Reason: Protocol Stop: 12/28/16 14:25 Last Admin: 11/29/16 18:11 Dose: 2 unit Lansoprazole (Prevacid 30 Mg Odt Tablet) 30 mg PO Q6AM SAHWN Stop: 12/29/16 05:59 Last Admin: 12/01/16 05:52 Dose: 30 mg Levalbuterol HCl (Xopenex Neb 1.25 Mg/3 Ml Ampul) 1.25 mg NEB RTQ4HP PRN PRN Reason: SOB/Wheezing Stop: 12/28/16 14:25 Last Admin: 11/30/16 20:27 Dose: 1.25 mg Lorazepam (Ativan Inj 2 Mg/1 Ml Vial) 1 mg IV Q6HP PRN PRN Reason: ANXIETY Stop: 12/07/16 08:05 Last Admin: 12/01/16 04:48 Dose: 1 mg Metoprolol Tartrate (Lopressor 50 Mg Tablet) 50 mg PO DAILY COUNT INCLUDES THE [facility] Stop: 12/29/16 09:59 Last Admin: 11/30/16 09:36 Dose: 50 mg Metoprolol Tartrate (Lopressor 50 Mg Tablet) 75 mg PO QHS COUNT INCLUDES THE [facility] Stop: 12/29/16 21:59 Last Admin: 11/30/16 21:51 Dose: 75 mg Pharmacy Profile Note (Medication Communication Order) 1 each MC .NOTICE NR Stop: 12/31/16 01:14 Piperacillin Sod/Tazobactam Sod (Zosyn Inj 3.375 Gm Vial) 3.375 gm IV ASDIR PRN Stop: 12/01/16 10:00 Sodium Chloride (Saline Flush 2.5 Ml Monoject Prefil Syrin) 2.5 ml IV Q8 COUNT INCLUDES THE [facility] Stop: 12/28/16 21:59 Last Admin: 12/01/16 05:32 Dose: Not Given Vancomycin HCl (Vancocin Inj 1000 Mg Vial) 1,000 mg IV ASDIR PRN Stop: 12/01/16 10:00 - Allergies Allergies/Adverse Reactions: lisinopril Adverse Reaction (Verified 11/28/16 10:34) cough - Diet/Activity Discharge Diet: Other (Comments) - Nothing by mouth Discharge Activity: Bedrest Hospital Course Hospital Course: The patient was admitted to the stepdown unit. The patient was maintained on BiPAP. The patient was placed on broad-spectrum antibiotic including Levaquin and cefepime. The patient blood culture was done and it was negative up to date. Sputum culture however grew Haemophilus influenza. However the patient remained on high flow oxygen and BiPAP. Patient was gently hydrated. Initial hypotension noted on admission resolved. As the patient desaturated he was transferred to the intensive care unit. In the intensive care unit the patient initially did fine with maintaining the BiPAP but later on after about 12-16 hours he began to desaturate again and eventually was intubated. Initially on CT scan of the chest was tried to be obtained but unable to assess the patient was having a lot of coughing prior to intubation. He was started on Diprivan drip and Levophed. Pulmonary was consulted and antibiotic cefepime was discontinued and shifted to [facility]. Thoracentesis was ordered. Course was noted for abnormal liver function test that fluctuates where on initial ultrasound showed some mild thickening in the wall of the gallbladder. Flagyl was added. HIDA scan was obtained showing no obstruction and the Flagyl was discontinued. The patient was placed on vancomycin in addition to the other intravenous antibiotics. His white count continues to increase however his creatinine has improved. His liver enzymes has likewise improved. At this point the patient requires infectious disease specialist and an project development engineer therefore [facility] was consulted and Dr. Reagan accepted the patient. Physical Exam Vital Signs: Temp Pulse Resp BP Pulse Ox 99.3 F 96 28 H 114/67 97 12/01/16 08:00 12/01/16 08:46 12/01/16 08:46 12/01/16 08:00 12/01/16 08:46 Pulse Oximeter Continuous Start: 11/28/16 14: 29 Freq: RTQ4 Status: Complete Document 11/30/16 04:00 [facility] (Rec: 11/30/16 06:14 [facility] [email or web address]) Pulse Oximetry Assessment Oxygen Saturation (92-100) 93 Oxygen Delivery Method Bi-pap Fraction of Inspired Oxygen (FIO2) 100 Equipment Usage Equipment in Use Continuous SpO2 Machine # 1 Intake & Output 11/30/16 12/01/16 12/02/16 06:59 06:59 06:59 Intake Total 1957 1510 Output Total 1000 1190 125 Balance 957 320 -125 Weight 92.3 kg General appearance: PRESENT: no acute distress, other - Intubated on mechanical ventilator Head exam: PRESENT: normocephalic Eye exam: PRESENT: PERRLA Mouth exam: PRESENT: moist, neck supple Neck exam: ABSENT: carotid bruit, JVD Respiratory exam: PRESENT: crackles - Occasional bilateral, symmetrical, unlabored, other - Air entry is good. ABSENT: accessory muscle use Cardiovascular exam: PRESENT: RRR. ABSENT: gallop GI/Abdominal exam: PRESENT: hypoactive bowel sounds, soft. ABSENT: distended, tenderness Extremities exam: PRESENT: pedal edema - Trace bilateral Neurological exam: PRESENT: altered - Sedated on Diprivan Skin exam: PRESENT: dry, warm. ABSENT: cyanosis Results Laboratory Results: 12/01/16 04:43 12/01/16 04:43 12/01/16 12/01/16 12/01/16 00:25 03:00 04:43 WBC 29.4 H RBC 3.98 L Hgb 11.5 L Hct 36.2 L MCV 91 MCH 28.9 MCHC 31.8 L RDW 14.6 H Plt Count 264 Seg Neutrophils % Not Reportable Lymphocytes % Not Reportable Monocytes % Not Reportable Eosinophils % Not Reportable Basophils % Not Reportable Absolute Neutrophils Not Reportable Absolute Lymphocytes Not Reportable Absolute Monocytes Not Reportable Absolute Eosinophils Not Reportable Absolute Basophils Not Reportable Carbonic Acid 0.94 L 1.42 H HCO3/H2CO3 Ratio 22:1 16:1 ABG pH 7.45 7.31 L ABG pCO2 31.1 L 47.3 H ABG pO2 46.1 L 60.4 L ABG HCO3 21.0 23.1 ABG O2 Saturation 84.6 L 88.7 L ABG Base Excess -2.0 -3.4 FiO2 95% 100% Sodium Potassium Chloride Carbon Dioxide Anion Gap BUN Creatinine Est GFR ( Amer) Est GFR (Non-Af Amer) Glucose Calcium Phosphorus Magnesium Total Bilirubin AST ALT Alkaline Phosphatase Total Protein Albumin Triglycerides Amylase Lipase 12/01/16 12/01/16 04:43 05:10 WBC RBC Hgb Hct MCV MCH MCHC RDW Plt Count Seg Neutrophils % Lymphocytes % Monocytes % Eosinophils % Basophils % Absolute Neutrophils Absolute Lymphocytes Absolute Monocytes Absolute Eosinophils Absolute Basophils Carbonic Acid 1.04 L HCO3/H2CO3 Ratio 18:1 ABG pH 7.37 ABG pCO2 34.7 L ABG pO2 80.4 ABG HCO3 19.7 L ABG O2 Saturation 95.7 ABG Base Excess -4.8 FiO2 100% Sodium 142.3 Potassium 3.9 Chloride 111 H Carbon Dioxide 20 L Anion Gap 11 BUN 41 H Creatinine 1.12 Est GFR ( Amer) > 60 Est GFR (Non-Af Amer) > 60 Glucose 200 H Calcium 7.1 L Phosphorus 4.2 Magnesium 2.6 H Total Bilirubin 1.6 H AST 168 H ALT 213 H Alkaline Phosphatase 125 Total Protein 4.9 L Albumin 1.9 L Triglycerides 330 H Amylase 31 Lipase 87.1 11/30/16 11/30/16 04:21 08:05 Creatine Kinase 120 CK-MB (CK-2) 3.60 Troponin I 0.026 Impressions: Abdomen Ultrasound 11/29/16 00:00 IMPRESSION: No acute findings. Gallbladder wall is slightly thickened as described. There is fatty infiltration of liver. Hepatobiliary Scan Nuclear Medicine 11/30/16 00:00 IMPRESSION: Technically limited study. No evidence of biliary obstruction. Chest X-Ray 12/01/16 00:00 IMPRESSION: Parenchymal opacities unchanged. SUPPORT DEVICE(S) IN EXPECTED LOCATIONS. Plan Discharge Plan: Transferred to [facility] for further evaluation and management. Time Spent: Less than 30 Minutes
[2016-12-01] MEDS: METOPROLOL TARTRATE 50 MG TABLET PO SCH (09:24)
[2016-12-01] MEDS: LEVOFLOXACIN 750 MG/D5W RTU 150 ML IV SCH (09:25)
[2016-12-01] MEDS: GUAIFENESIN 600 MG TABLET.SA PO SCH (09:25)
[2016-12-01] MEDS ORDERED: SUCCINYLCHOLINE CHLORIDE INJ 200 MG/10 ML VIAL ONE (11:00)
[2016-12-01] MEDS ORDERED: ROCURONIUM BROMIDE INJ 50 MG/5 ML VIAL IV ONE (11:00)
[2016-12-01] MEDS: INSULIN REG, HUMAN 100 UNIT/ML 3 ML VIAL (PYX) SUBCUT PRN (11:05)
[2016-12-01 12:22] VITALS: BP 106/56
== END 2016-12-01 13:32 | disposition short-term general hospital (02) | DRG 871 ==
LOC: ER 10:16 → EH 13:16 → UNDOADMIN 13:16 → EH 14:27 → 3W 14:58 → ICU 11-30 07:04
PROVIDERS: ADMIT Family Medicine; ATTEND Family Medicine
PROC: 5A09457 Assistance with Respiratory Ventilation, 24-96 Consecutive Hours, Continuous Positive Airway Pressure (ICD-10-PCS; 2016-11-28)
PROC: 0BH17EZ Insertion of Endotracheal Airway into Trachea, Via Natural or Artificial Opening (ICD-10-PCS; principal; 2016-12-01)
PROC: 5A1935Z Respiratory Ventilation, Less than 24 Consecutive Hours (ICD-10-PCS; 2016-12-01)
DX: A41.9 Sepsis, unspecified organism (principal); J96.01 Acute respiratory failure with hypoxia; J14 Pneumonia due to Hemophilus influenzae; N17.9 Acute kidney failure, unspecified; E78.5 Hyperlipidemia, unspecified; I10 Essential (primary) hypertension; M19.90 Unspecified osteoarthritis, unspecified site; R65.20 Severe sepsis without septic shock; E11.65 Type 2 diabetes mellitus with hyperglycemia; Z85.828 Personal history of other malignant neoplasm of skin; R79.89 Other specified abnormal findings of blood chemistry; Z80.9 Family history of malignant neoplasm, unspecified; Z79.899 Other long term (current) drug therapy
CPT/HCPCS: 31500; 36415; 36600; 71010; 76705; 78226; 80048; 80053; 80076; 82150; 82550; 82553; 82803; 82962; 83036; 83605; 83615; 83690; 83735; 83880; 84100; 84478; 84484; 85025; 85027; 87040; 87070; 87077; 87205; 87804; 93005; 93010; 94002; 94640; 94660; 94762; 96361; 96365; 99291; A9537; J0330; J0692; J0696; J1650; J1815; J1956; J2060; J2543; J2704; J3370; J3480; J3490; J7030; J7050; J7060; J7620; Q9969

== ENCOUNTER → 2017-01-10 | Outpatient (CLI) | payer MEDICARE, OTHER | LOC: OD 09:01 | PROVIDERS: ATTEND Family Medicine | DX: J18.9 Pneumonia, unspecified organism (principal) | CPT/HCPCS: 71020 ==

== ENCOUNTER → 2017-01-25 | Outpatient (CLI) | payer MEDICARE, OTHER | LOC: OD 10:31 | PROVIDERS: ATTEND Family Medicine | DX: J18.9 Pneumonia, unspecified organism (principal) | CPT/HCPCS: 71020 ==

== ENCOUNTER → 2017-08-21 | Outpatient (CLI) | payer MEDICARE, OTHER ==
--- NOTE | 2017-08-21 10:16 | RADIOLOGY REPORT (SQ) ---
EXAM DESCRIPTION: HAND BILATERAL 3 VIEWS COMPLETED DATE/TIME: 08/21/2017 8:34 am REASON FOR STUDY: PAIN IN RIGHT HAND,PAIN IN LT HAND M79.641 PAIN IN RIGHT HAND M79.642 PAIN IN LE FT HAND COMPARISON: None. EXAM PARAMETERS: NUMBER OF VIEWS: Three views right hand. Three views left hand. TECHNIQUE: AP, lateral and oblique radiographic images acquired of bilateral hands. LIMITATIONS: None. FINDINGS: MINERALIZATION: Normal. BONES: No acute fracture or dislocation. JOINTS: There is osteoarthritis with joint space narrowing and bony spurring at the bilateral 1st car pometacarpal joints, bilateral thumb interphalangeal joints, the bilateral 2nd 3rd and 5th DIP joints . SOFT TISSUES: No swelling. No calcifications. OTHER: No other significant finding. IMPRESSION: Bilateral osteoarthritis as above. No fracture. No lytic or blastic lesions. No malal ignment. TECHNICAL DOCUMENTATION: JOB ID: [id number] [employer]- All Rights Reserved
== END ==
LOC: OD 08:18
PROVIDERS: ATTEND Family Medicine
DX: M79.641 Pain in right hand (principal); M79.642 Pain in left hand; M19.042 Primary osteoarthritis, left hand; M19.041 Primary osteoarthritis, right hand

== ENCOUNTER 2018-06-13 07:55 | Day surgery (SDC) | payer MEDICARE, OTHER ==
[~2018-06-13 07:55] MED LIST: CHONDR SU A NA/HYALUR INTRAOC KIT (SURGICARE) ONE; EPINEPHRINE INJ/PF 1 MG/1 ML AMPULE ONE; KETOROLAC TROMETHAMINE 0.45% 4 DROP/0.4 ML DROPERETTE OD PRN; LIDOCAINE 1% INJ-PF (10 MG/ML) 30 ML SDV ONE; MIDAZOLAM 2 MG/2 ML INJ ONE
[2018-06-13] MEDS: TROPICAMIDE 1% OPH SOLN 3 ML OD PRN ×3 (08:01→08:35)
[2018-06-13] MEDS: CYCLOPENTOLATE 0.2%/PHENYLEPHRINE 1% OPH SOLN 2 ML OD PRN ×3 (08:01→08:35)
[2018-06-13] MEDS: BESIFLOXACIN HCL 0.6% OPH SUSP 5 ML BOTTLE OD PRN ×3 (08:02→09:00)
[2018-06-13] MEDS: TETRACAINE HCL 0.5% OPH SOLN 2 ML OD PRN ×3 (08:03→08:42)
--- NOTE | 2018-06-13 21:40 | [facility] DISCHARGE SUMMARY E ---
[facility] Discharge Summary NAME: FAVIAN PALACIOS AGE: 77Y ADMITTED: 06/13/2018 DISCHARGED: 06/13/2018 FINAL DIAGNOSIS: Cataract, right eye. HOSPITAL COURSE: This is a 77-year-old patient who underwent cataract extraction of the right eye. He underwent surgery because he was having difficulty seeing words on the television. DISCHARGE INSTRUCTIONS: He should be on a regular diet. No bending at his waist, no heavy lifting. He should use Besivance, Ilevro and Durezol at 3:00 p.m. and 8:00 p.m. Sleep with a rigid shield. I will see him for a 1-day postoperative tomorrow. DICTATING PHYSICIAN: FAUSTINO MUNOZ M.D. [id number] PHY#: [id number] 1999 ID: [id number] JOB#: [id number] ACCT: [id number] cc:FAUSTINO MUNOZ M.D. >
--- NOTE | 2018-06-13 21:40 | [facility] OPERATIVE REPORT E ---
[facility] Operative Report NAME: FAVIAN PALACIOS AGE: 77Y DATE OF SURGERY: 06/13/2018 ROOM: PREOPERATIVE DIAGNOSIS: CATARACT, RIGHT EYE. POSTOPERATIVE DIAGNOSIS: CATARACT, RIGHT EYE. OPERATION: Cataract extraction with insertion of an IOL of the right eye. SURGEON: FAUSTINO MUNOZ M.D. ANESTHESIA: Topical. PROCEDURE: After obtaining appropriate consent, the patient's right eye was prepped and draped in sterile fashion as well as the surgeon in a sterile manner and cataract surgery was started. First a paracentesis blade was used to make a side-port incision. Viscoelastic was used to inflate the anterior chamber. Next a 2.4 mm incision was made with a 2.4 mm blade, clear corneal temporally. A continuous capsulorrhexis was made using a cystotome and Utrata forceps. Following this hydrodissection was carried out to make the lens fully loose and mobile and it was rotated 90 degrees. Following this, a audzkr-svf-vazctoc technique was used to phacoemulsify the lens with a CDE of 9.7. The remaining cortex was removed with irrigation/aspiration. Provisc was instilled into the capsular bag to inflate the bag. A SN60WF, 18.5 diopter lens was placed. The remaining viscoelastic material was removed with irrigation/aspiration. Following this, the incision was found to be watertight. Besivance was instilled into the eye and a protective shield was placed over the eye. The patient returned to the postoperative recovery in stable condition. DICTATING PHYSICIAN: FAUSTINO MUNOZ M.D. [id number] PHY#: [id number] ID: [id number] JOB#: [id number] ACCT: [id number] cc:FAUSTINO MUNOZ M.D. >
== END 2018-06-13 09:43 | disposition home or self-care (01) ==
LOC: SC 07:55
PROVIDERS: ATTEND Internal Medicine
DX: H25.89 Other age-related cataract (principal); E11.9 Type 2 diabetes mellitus without complications; R00.0 Tachycardia, unspecified; I10 Essential (primary) hypertension; Z79.84 Long term (current) use of oral hypoglycemic drugs; Z79.899 Other long term (current) drug therapy; Z88.8 Allergy status to other drugs, medicaments and biological substances; Z87.891 Personal history of nicotine dependence
CPT/HCPCS: 66984; 82962; V2632; J2250; J3490 ×2; A9270; J0171; 142

== ENCOUNTER 2018-07-11 08:50 | Day surgery (SDC) | payer MEDICARE, OTHER ==
[~2018-07-11 08:50] MED LIST changes: -CHONDR SU A NA/HYALUR INTRAOC KIT (SURGICARE) ONE; -EPINEPHRINE INJ/PF 1 MG/1 ML AMPULE ONE; -KETOROLAC TROMETHAMINE 0.45% 4 DROP/0.4 ML DROPERETTE OD PRN; +KETOROLAC TROMETHAMINE 0.45% 4 DROP/0.4 ML DROPERETTE OS PRN; -LIDOCAINE 1% INJ-PF (10 MG/ML) 30 ML SDV ONE; -MIDAZOLAM 2 MG/2 ML INJ ONE
[2018-07-11] MEDS ORDERED: MIDAZOLAM 2 MG/2 ML INJ ONE (08:59)
[2018-07-11] MEDS: TROPICAMIDE 1% OPH SOLN 3 ML OS PRN ×3 (09:33→09:54)
[2018-07-11] MEDS: BESIFLOXACIN HCL 0.6% OPH SUSP 5 ML BOTTLE OS PRN ×2 (09:34→09:55)
[2018-07-11] MEDS: CYCLOPENTOLATE 0.2%/PHENYLEPHRINE 1% OPH SOLN 2 ML OS PRN ×3 (09:34→09:54)
[2018-07-11] MEDS: TETRACAINE HCL 0.5% OPH SOLN 2 ML OS PRN ×2 (09:35→09:55)
[2018-07-11] MEDS ORDERED: EPINEPHRINE INJ/PF 1 MG/1 ML AMPULE ONE (09:49)
[2018-07-11] MEDS ORDERED: CHONDR SU A NA/HYALUR INTRAOC KIT (SURGICARE) ONE (09:49)
[2018-07-11] MEDS ORDERED: LIDOCAINE 1% INJ-PF (10 MG/ML) 30 ML SDV ONE (09:49)
--- NOTE | 2018-07-11 19:56 | [facility] OPERATIVE REPORT E ---
[facility] Operative Report NAME: FAVIAN PALACIOS AGE: 77Y DATE OF SURGERY: 07/11/2018 ROOM: PREOPERATIVE DIAGNOSIS: CATARACT, LEFT EYE. POSTOPERATIVE DIAGNOSIS: CATARACT, LEFT EYE. OPERATION: Cataract extraction with insertion of an IOL of the left eye. SURGEON: FAUSTINO MUNOZ M.D. ANESTHESIA: Topical. PROCEDURE: After obtaining appropriate consent, the patient's left eye was prepped and draped in sterile fashion as well as the surgeon in a sterile manner and cataract surgery was started. First a paracentesis blade was used to make a side-port incision. Viscoelastic was used to inflate the anterior chamber. Next a 2.4 mm incision was made with a 2.4 mm blade, clear corneal temporally. A continuous capsulorrhexis was made using a cystotome and Utrata forceps. Following this hydrodissection was carried out to make the lens fully loose and mobile and it was rotated 90 degrees. Following this, a wlfrch-pnz-gmrojva technique was used to phacoemulsify the lens with a CDE of 7.45. The remaining cortex was removed with irrigation/aspiration. Provisc was instilled into the capsular bag to inflate the bag. A SN60WF, 18.5 diopter lens was placed. The remaining viscoelastic material was removed with irrigation/aspiration. Following this, the incision was found to be watertight. Besivance was instilled into the eye and a protective shield was placed over the eye. The patient returned to the postoperative recovery in stable condition. DICTATING PHYSICIAN: FAUSTINO MUNOZ M.D. [id number] PHY#: [id number] ID: [id number] JOB#: [id number] ACCT: [id number] cc:FAUSTINO MUNOZ M.D. >
--- NOTE | 2018-07-11 20:01 | [facility] DISCHARGE SUMMARY E ---
[facility] Discharge Summary NAME: FAVIAN PALACIOS AGE: 77Y ADMITTED: 07/11/2018 DISCHARGED: 07/11/2018 DIAGNOSIS: Cataract, left eye. SUMMARY: This is a 77-year-old male who underwent cataract extraction of the left eye. He underwent surgery because he was having trouble seeing small print. DISCHARGE INSTRUCTIONS: He should be on a regular diet, no bending at the waist, and no heavy lifting. He should use his Besivance, Ilevro, and Durezol at 3 p.m. and 8 p.m. and sleep with a rigid shield. I will see him then for a 1-day postoperative tomorrow. DICTATING PHYSICIAN: FAUSTINO MUNOZ M.D. [id number] PHY#: [id number] 1927 ID: [id number] JOB#: [id number] ACCT: [id number] cc:FAUSTINO MUNOZ M.D. >
== END 2018-07-11 11:01 | disposition home or self-care (01) ==
LOC: SC 08:50
PROVIDERS: ATTEND Internal Medicine
DX: H25.89 Other age-related cataract (principal); Z96.1 Presence of intraocular lens; I10 Essential (primary) hypertension; E11.9 Type 2 diabetes mellitus without complications
CPT/HCPCS: 66984; 82962; V2632; J2250; J3490 ×2; A9270; J0171; 142